=== PATIENT | female | born 1970 | race African-American/Black ===

== ENCOUNTER 2018-01-30 07:43 | Emergency (ER) | payer SELFPAY ==
[~2018-01-30] VITALS: Ht 144.8 cm; Wt 59.1 kg
[2018-01-30 07:48] VITALS: BP 140/102
[2018-01-30] MEDS ORDERED: CYAN100072 PO (07:48)
== END 2018-01-30 08:30 | disposition home or self-care (01) ==
LOC: EMS 07:44
DX: B35.3 Tinea pedis (principal); F17.210 Nicotine dependence, cigarettes, uncomplicated
CPT/HCPCS: 99406

== ENCOUNTER 2020-06-19 19:43 | Emergency (ER) | payer MEDICAID ==
[~2020-06-19] VITALS: Ht 127 cm; Wt 54.5 kg
[~2020-06-19 19:43] MED LIST: CYAN100072 PO
[2020-06-19 21:55] VITALS: BP 121/72
[2020-06-19] MEDS ORDERED: CefTRIAXone SODIUM 1 GM/VIAL IM ONE (22:00)
[2020-06-19] MEDS ORDERED: LIDOCAINE/PF 1% 2 ML VIAL IM ONE (22:00)
[2020-06-19] MEDS ORDERED: AZITHROMYCIN 500 MG TABLET PO ONE (22:00)
== END 2020-06-19 22:12 | disposition home or self-care (01) ==
LOC: EMS 19:47
DX: N34.2 Other urethritis (principal)
CPT/HCPCS: 87070; 87205; 87210; 87491; 87591; 96372; 99283; A9575; J0696; J3490

== ENCOUNTER 2020-10-14 20:37 | Emergency (ER) | payer MEDICAID | END 2020-10-14 21:15 | disposition left against medical advice (07) | LOC: EMS 20:39 | DX: Z00.00 Encounter for general adult medical examination without abnormal findings (principal); Z53.21 Procedure and treatment not carried out due to patient leaving prior to being seen by health care provider ==

== ENCOUNTER 2020-10-17 16:36 | Emergency (ER) | payer MEDICAID ==
[~2020-10-17] VITALS: Ht 144.8 cm; Wt 56.8 kg
[2020-10-17 17:18] VITALS: BP 127/87
== END 2020-10-17 20:24 | disposition home or self-care (01) ==
LOC: EMS 16:42
DX: L25.9 Unspecified contact dermatitis, unspecified cause (principal); B35.3 Tinea pedis
CPT/HCPCS: 99283

== ENCOUNTER 2025-01-23 23:34 | Emergency (ER) | payer MEDICAID ==
[~2025-01-23] VITALS: Ht 144.8 cm; Wt 40.9 kg
[2025-01-24] LABS: COVID AG,FIA SOURCE NASAL SWAB
[2025-01-24 00:11] LABS: SARS-COV2 (COVID) ANTIGEN,FIA Negative (Negative)
[2025-01-24 00:39] LABS: CALCIUM, TOTAL 9.2 mg/dL (8.8-10.5); CREATININE 0.53 mg/dL (0.60-1.30); GLOMERULAR FILTR. RATE CALC > 60 mL/min (>60); GLUCOSE,RANDOM 87 mg/dL (70-110); SODIUM SERUM 139 mmol/L (136-145); UREA NITROGEN, BLOOD 12 mg/dL (7-18)
[2025-01-24 00:45] LABS: ASPARTATE AMINOTRANSFERASE 52.0 U/L (15-37); TOTAL PROTEIN, SERUM 7.2 g/dL (6.4-8.2)
[2025-01-24 00:50] LABS: TROPONIN I-HIGH SENSITIVITY Less Than 4 ng/L (<51)
[2025-01-24 01:43] LABS: PLATELET COUNT (AUTO) 83 K/uL (150-450); RED BLOOD CELL COUNT(AUTO) 2.68 MIL/uL (4.00-5.20); RED CELL DISTRIBUTION WIDTH 32.3 % (11.5-14.5); WHITE BLOOD COUNT (AUTO) 2.7 K/uL (4.5-11.0)
[2025-01-24 03:00] VITALS: BP 122/65; PULSE 79; RESP 16; TEMP 97.3; O2SAT 100
[2025-01-24 03:50] LABS: APPEARANCE,URINE HAZY (CLEAR); GLUCOSE, URINE (UA) NEGATIVE (NEGATIVE); LEUKOCYTE ESTERASE ,URINE NEGATIVE (NEGATIVE); NITRATE,URINE NEGATIVE (NEGATIVE); OCCULT BLOOD,URINE NEGATIVE (NEGATIVE); SPECIFIC GRAVITIY, URINE 1.039 (1.003-1.030)
[2025-01-24 04:02] LABS: RBC MORPHOLOGY COMMENT DIMORPHIC RBC
[2025-01-24] MEDS ORDERED: SODIUM CHLORIDE 0.9% 100 ML ONE (06:38)
[2025-01-24] MEDS ORDERED: IOHEXOL 350 MG/ML 100 ML VIAL ONE (06:38)
== END 2025-01-24 03:55 | disposition home or self-care (01) ==
LOC: EMS 23:35
DX: D61.818 Other pancytopenia (principal); J43.9 Emphysema, unspecified; I71.9 Aortic aneurysm of unspecified site, without rupture; F17.210 Nicotine dependence, cigarettes, uncomplicated; F12.90 Cannabis use, unspecified, uncomplicated; Z20.822 Contact with and (suspected) exposure to COVID-19
CPT/HCPCS: 99285; 71045 ×2; 87426; 80048; 80076; 81003; 83690; 83880; 84484; 85025; 93005; 74174; 74175; 36415; Q9967; J7050